=== PATIENT | female | born 1970 | race Caucasian/White ===

== ENCOUNTER 2019-05-30 09:18 | Outpatient (CLI) | payer MEDICARE, MEDICAID, SELFPAY | END 2019-05-30 09:19 | disposition home or self-care (01) | PROVIDERS: PCP Family Medicine; Visit Provider Family Medicine | DX: Z01.10 Encounter for examination of ears and hearing without abnormal findings (principal) | CPT/HCPCS: 92567; 92587 ==

== ENCOUNTER 2020-06-04 07:12 | Outpatient (CLI) | payer MEDICARE, MEDICAID, SELFPAY | END 2020-06-04 07:13 | disposition home or self-care (01) | PROVIDERS: PCP Family Medicine; Visit Provider Family Medicine | DX: H91.90 Unspecified hearing loss, unspecified ear (principal) | CPT/HCPCS: 92567; 92587 ==

== ENCOUNTER 2021-06-27 08:58 | Outpatient (CLI) | payer MEDICARE, MEDICAID, SELFPAY | END 2021-06-27 08:59 | disposition home or self-care (01) | LOC: ANHAUDIO 08:59 | PROVIDERS: PCP Family Medicine; Visit Provider Family Medicine | DX: Z01.10 Encounter for examination of ears and hearing without abnormal findings (principal) | CPT/HCPCS: 92587 ==

== ENCOUNTER 2022-07-22 09:12 | Outpatient (CLI) | payer MEDICARE, MEDICAID, SELFPAY | END 2022-07-22 09:13 | disposition home or self-care (01) | LOC: ANHAUDIO 09:13 | PROVIDERS: PCP Family Medicine; Visit Provider Family Medicine | DX: Z01.10 Encounter for examination of ears and hearing without abnormal findings (principal); H91.90 Unspecified hearing loss, unspecified ear | CPT/HCPCS: 92567 ==

== ENCOUNTER 2023-07-28 07:52 | Outpatient (CLI) | payer MEDICARE, MEDICAID, SELFPAY | END 2023-07-28 07:53 | disposition home or self-care (01) | LOC: ANHAUDIO 07:52 | PROVIDERS: PCP Family Medicine; Visit Provider Family Medicine | DX: Z01.10 Encounter for examination of ears and hearing without abnormal findings (principal) | CPT/HCPCS: 92555; 92567; 92587 ==

== ENCOUNTER 2024-08-04 07:51 | Outpatient (CLI) | payer MEDICARE, MEDICAID, SELFPAY ==
--- OUTSIDE RECORDS SUMMARY | 2024-08-04 07:55 | XMS_ITS | Clinical Summary ---
Author Organization [facility] Address [address] [place] [address] Care Team Providers Care Insurance Collector Name Role Phone Rory Medrano MD Primary Care Provider [phone] Allergies No known active allergies Medications benztropine 0.5 MG Tab Take 1 tablet by mouth nightly at bedtime. Active calcium carbonate-vitami n D 600-400 MG-UNIT Tab Take 1 tablet by mouth 2 (two) times daily. Active potassium chloride CR 10 MEQ tablet Take 10 mEq by mouth daily. Active estrogen, conjugated,-medr oxyPROGESTERone (PREMPRO LOW DOSE) 0.45-1.5 MG tablet Take 1 tablet by mouth daily. Active sertraline 100 MG tablet Take 200 mg by mouth daily. Active triamcinolone 0.1 % cream Apply topically 2 (two) times daily as needed. Active acetaminophen 325 MG tablet Take 650 mg by mouth every 4 (four) hours as needed for Pain. Active topiramate 25 MG tabletIndication s:take 3 tabs at 4pm Take 3 tablets (75 mg total) by mouth daily. Indications: take 3 tabs at 4pm 90 tablet 1 Active OXcarbazepine 600 MG Tab tabletIndication s:take at 7am and 8pm Take 1 tablet (600 mg total) by mouth 2 (two) times daily. Indications: take at 7am and 8pm 60 tablet 1 Active OXcarbazepine 300 MG tabletIndication s:take at 4pm with 150mg tab to = 450mg Take 1 tablet (300 mg total) by mouth daily. Indications: take at 4pm with 150mg tab to = 450mg 60 tablet 11 1 Active OXcarbazepine 150 MG tabletIndication s:at 4 pm with 300mg tab to = 450mg Take 1 tablet (150 mg total) by mouth daily. Indications: at 4 pm with 300mg tab to = 450mg 120 tablet 11 1 Active lamoTRIgine 200 MG tabletIndication s:Nonintractable epilepsy without status epilepticus, unspecified epilepsy type ([facility]) Take 1 tablet (200 mg total) by mouth daily. Take with 50 mg Tab to = 250mg 60 tablet 11 1 Active lamoTRIgine 100 MG tabletIndication s:take with 200 mg tab to =250mg Take 0.5 tablets (50 mg total) by mouth daily. Indications: take with 200 mg tab to =250mg 60 tablet 1 Active clonazePAM 0.5 MG tabletIndication s:Nonintractable epilepsy without status epilepticus, unspecified epilepsy type ([facility]) Take 0.5 tablets (0.25 mg total) by mouth 2 (two) times daily. 90 tablet 5 1 Active Active Problems Problem Noted Date Diagnosed Date Septic shock ([facility]) 07/05/2018 At risk for osteopenia 06/10/2017 Long-term current use of anticonvulsant 06/11/19 18 Epilepsy ([facility]) 06/02/2016 Bipolar disorder ([facility]) 05/28/2016 Mental retardation 05/28/2016 Neurodermatitis 05/28/2016 Resolved Problems Problem Noted Date Diagnosed Date Resolved Date Postoperative examination 10/22/2015 Social History Tobacco Use Types Packs/Day Years Used Date Smoking Tobacco: Never Smokeless Tobacco: Never Tobacco Cessation:Counseling Given: No Comments:patient isnt smoking Alcohol Use Standard Drinks/Week Comments No 0 (1 standard drink = 0.6 oz pur e alcohol) AUDIT-C Answer Date Recorded Frequency of Alcohol Consumption Never 07/05/2018 Average Number of Drinks Not on file 019 Frequency of Binge Drinking Not on file 10/2018 PHQ-2 Answer Date Recorded PHQ-2 Score - If the patient scores above 3, please move on to questions 3-9 0 06/22/2020 Comments No Sex and Gender Information Value Date Recorded Sex Assigned at Not on file Legal Sex Female 4:53 PM CDT Gender Identity Not on file Sexual Orientation Not on file Last Filed Vital Signs Vital Sign Reading Time Taken Comments Blood Pressure 108/64 06/22/2020 8:31 AM CDT Pulse 72 06/22/2020 8:31 AM CDT Temperature 36.3 C (97.4 F) 06/22/2020 8:31 AM CDT Respiratory Rate 18 04/14/2019 3:51 PM DRIVER'S EDUCATION INSTRUCTOR Oxygen Saturation 98% 06/22/2020 8:31 AM CDT Inhaled Oxygen Concentration - - Weight 52.6 kg (116 lb) 06/22/2020 8:31 AM CDT Height 157.5 cm (5' 2 ) 06/22/2020 8:31 AM CDT Body Mass Index 21.22 06/22/2020 8:31 AM CDT Plan of Treatment Health Maintenance Due Date Last Done Comments Cervical Cancer Screening Pa p Smear (Age 30 to 64) Every 3 Years 1969 Colorectal Cancer Screening Colonoscopy (10 Years) 1969 Annual Physical 1972 Hepatitis C 06/15/1987 DTaP, Tdap and Td Vaccines ( 1 - Tdap) 1988 Hepatitis B Vaccines (1 of 3 - 19+ 3-dose series) 1988 Cervical Cancer Screening Pa p with HPV Testing (Age 30 to 64) Every 5 Years 06/15/1999 Cervical Cancer Screening with HPV 06/15/1999 Mammogram Screening 2009 Pneumococcal Vaccine: 50+ Ye ars (1 of 1 - PCV) 06/15/2019 Zoster Vaccines (1 of 2) 06/15/2019 COVID-19 Vaccine (2023-2 5 season) 2023 Meningococcal B Vaccine Aged Out No l onger eligible based on patient's age to complete this topic Meningococcal Vaccine Aged Out No ceci quan eligible based on patient's age to complete this topic RSV Immunizations Under 20 Months Aged Out No longer eligible based on patient's age to complete this topic Insurance MEDICARE MEDICAID Advance Directives * Full Code (Latest Code Status on File) Date Activated Date Inactivated Comments 07/06/2018 2:13 PM 07/08/2018 1:36 PM Care Teams Insurance Collector Relationship Specialty Start Date End Date Rory Medrano MD PCP - General FAMILY PRACTICE 07/05/18
--- OUTSIDE RECORDS SUMMARY | 2024-08-04 07:55 | XMS_ITS | Data Portability ---
Author Organization [facility], [address] [facility] ([place]) Address [address] [place] [address] [address] [place] [address] Care Team Providers Care Outdoor Illuminating Engineer Name Role Phone YESSICA BOSWELL Primary Care Provider Assessment Encounter Date Assessment Date Assessment LastModified by Organization Details LastModified Time 08/17/2023 08/17/2023 ASSESSMENT AND PLAN: Rupinder Castro is a 53-year-old female who presents today to [facility] seizure disorder. At this point she is stable on lamotrigine extended release 250 mg daily and 450 mg in the afternoon, topiramate 75 mg nightly and Trileptal 600 mg in the morning, 450 mg in the afternoon and 600 mg nightly. She was historically also on Clonazepam 0.5 mg b.i.d. Per review of facility records they are maintaining this dosing. We will maintain dosing as well since she has had no seizure breakthrough. I would like to see her back in 1 year. I personally spent a total of 15 minutes on the patient on this date of service including both ldrs-cy-lzbc and zav-rqoa-tc-fac e time excluding any separately reportable services. [email or web address] vanegas Not available 08/17/2023 13:01:02 07/11/2024 07/11/2024 ASSESSMENT AND PLAN: Rupinder Castro is a 54-year-old female with past medical history significant for mental retardation with long-standing history of seizure disorder. She maintains stable on the current doses of Lamictal, Trileptal, topiramate and Clonazepam. For this reason, we will maintain the current regimen. I will obtain recent lab work from [facility]. If there is any need to repeat CBC, CMP or sodium level, we will consider doing so if necessary. I will see her back in 1 year secondary to stability. If she needs anything in the interim, she understands to call the office. I personally spent a total of 5 minutes on the patient on this date of service including both znrh-ol-qjjo and dhl-eeoc-hl-fac e time excluding any separately reportable services. saw [email or web address] Not available 07/11/2024 12:08:17 Plan of Treatment Reminders Order Date Submit Date Provider Last Modified By Organization Details Last Modified Time Details Appointments Establish ed Patient 15.EST 2025 09:30A M Dr. Shraddha Paiz Not available Not available Not available Lab None recorded. Referral None recorded. Procedures None recorded. Surgeries None recorded. Imaging None recorded. Medication Orders topiramat e 25 mg tablet 2024 025 [facility], [address] [place], [address], 07/11/2024 11:03:43 Trileptal 150 mg tablet 2024 025 [facility], [facility] [address] [place], [address], 07/11/2024 11:03:45 Trileptal 600 mg tablet 2024 025 [facility], [facility] [address] [place], [address], 07/11/2024 11:03:53 Lamictal XR 200 mg tablet,ex tended release 2024 025 [facility], [address] [place], [address], 07/13/2024 16:19:55 Lamictal XR 100 mg tablet,ex tended release 2024 025 [facility], [address] [place], [address], 07/13/2024 16:18:55 Lamictal XR 200 mg tablet,ex tended release [address], [address], [place], [address], 07/13/2024 16:18:54 Lamictal XR 100 mg tablet,ex tended release [address], [address], [place], [address], 07/13/2024 16:18:39 Trileptal 600 mg tablet 2023 024 [facility] [address] [facility], [address], [place], [address], 08/17/2023 11:03:38 Trileptal 150 mg tablet 2023 024 [facility] [employer] [facility], [address] [place], [address], 08/17/2023 11:03:39 topiramat e 25 mg tablet 2023 024 [facility] [employer] [facility], [address], [place], [address], 08/17/2023 11:04:32 clonazepa m 0.5 mg tablet 2023 024 [facility] [employer] [facility], [address], [place], [address], 08/17/2023 11:06:32 Patient TargetsNo targets recorded. Patient InstructionsNo instructions recorded. Reason for Referral None Reported. Results Created Date Observation Date Name Description Value Unit Range Abnormal Flag Note LastModifiedBy Organization Detail LastModifiedTime Result Notes None recorded. Problems Name Problem SNOMED Code Status Onset Date Resolution Date Notes Provider Name and Address Organization Details Recorded Time Seizure disorder 104334842 Active 024 Shraddha Paiz MD [address] [facility], [place], [address] , [employer] 5 10:59:17 Problem Notes None recorded. Medical Equipment None Reported. Medications Name Sig Start Date Stop Date Status Note LastModified by Organization Details LastModified Time Prescript ion - New active Microbiology Supervisor: RUBY CUELLO (Neurolo gy) , sPrescri ption Form Not Available Not Available Not Available Colace 100 mg capsule Take 1 capsule every day by oral route as directed . active Not Available Not Available No t Available benztropi ne 0.5 mg tablet Take 1 tablet every day by oral route. active Not Available Not Available No t Available lamotrigi ne 200 mg tablet Take 1 tablet every day by oral route in the morning for 30 days, for Seizure disorder . 2024 active Not Available Not Available Not Avai lable clonazepa m 0.5 mg tablet Take 1/2 tab at 7 am and 8 pm 2023 active Not Available Not Available Not Avai lable sertralin e 100 mg tablet Take 2 tablets every day by oral route as directed . active Not Available Not Available No t Available topiramat e 25 mg tablet Take 3 tablets nightly 2024 active Not Available Not Available Not Avai lable potassium chloride ER 10 mEq tablet,ex tended release Take 1 tablet every day by oral route as directed . active Not Available Not Available No t Available triamcino lone acetonide 0.1 % topical cream APPLY A THIN LAYER TO THE AFFECTED AREA(S) BY TOPICAL ROUTE 2 TIMES PER DAY active Not Available Not Available No t Available lamotrigi ne 25 mg tablet Take 2 tablets every day by oral route in the morning for 30 days, for Seizure disorder . 2024 active Not Available Not Available Not Avai lable Trileptal 600 mg tablet Take 1 tab BID in addition to 450 mg in afternoo n 2024 active Not Available Not Available Not Avai lable Trileptal 150 mg tablet Take 3 tablets in the afternoo n in addition to the 600 mg dosing 2024 active Not Available Not Available Not Avai lable Tylenol 325 mg tablet Take 2 tablets every 6 hours by oral route as needed. active Not Available Not Available No t Available Lamictal XR 200 mg tablet,ex tended release Take 1 tab q am and 2 tabs nightly with 1/2 of the 100 mg ER tab 07/13 completed Not Available Not Available Not Available Lamictal XR 100 mg tablet,ex tended release Take 1 tab q am and 1/2 tab nightly with the 200 mg tab dose 07/13 completed Not Available Not Available Not Available Prolia 60 mg/mL subcutane ous syringe INJECT 1 MILLILIT ER (60 MG) BY SUBCUTAN EOUS ROUTE EVERY 6 MONTHS IN THE UPPER ARM, UPPER THIGH OR ABDOMEN active Not Available Not Available No t Available Vitals Date Recorded Body weight Heart rate Respiratory rate Oxygen saturation Oxygen saturation in Arterial blood by Pulse oximetry Systolic blood pressure Diastolic blood pressure Provider Name and Address Organization Details Last Updated DateTime 4 91683.4 9 g 82 /min 18 /min 95 % 95 % 94 mm[Hg] 50 mm[Hg] Yuki [facility] 4 10:38:15 Date Recorded Body height Body mass index (BMI) Body weight Heart rate Oxygen saturation Oxygen saturation in Arterial blood by Pulse oximetry Systolic blood pressure Diastolic blood pressure Provider Name and Address Organization Details Last Updated DateTime 5 157.48 cm 24.8 kg/m2 25879.4 1 g 77 /min 96 % 96 % 98 mm[Hg] 67 mm[Hg] Elizabeth Vincent [facility] 5 10:36:37 Social History None recorded. Functional Status None recorded. Mental Status None recorded. Family History Nothing Reported. Medical History No medical history recorded. Gynecological HistoryNo gynecological history recorded. Obstetrics History GPAL:G 0 P 0 0 0 0 Past Encounters Encounter ID Performer Location Encounter Start Date Encounter Closed Date Diagnosis/Indication Diagnosis SNOMED-CT Code Diagnosis ICD10 Code Diagnosis Note [id number] Shraddha Paiz MD [facility] ([place]) [address] [place] [address] 08/17/2023 10:34:23 08/20/2023 10:35:09 Seizure disorder 945107406 G40.909 Long-term drug therapy 208834389 Z79.899 [id number] Shraddha Paiz MD [place] [facility] ([place]) [address] [place] [address] 07/11/2024 10:28:55 07/11/2024 10:49:25 Seizure disorder 926796622 G40.909 Health Concerns Section Related Observation LastModified by Organization Detai ls LastModified Time None Recorded Concern Status LastModified by Organization Details LastModified Time None Recorded Advance Directives Directive None Recorded Payers Insurance Date Sequence Insurance Name Policy Number Policy Buck Covered Member ID Buck Member ID Guarantor Name 07/06/2024 1 [place] Rupinder Castro [id number] Rupinder Castro 07/06/2024 2 [place]: [facility] Rupinder Castro [id number] Rupinder Castro Notes Date Note Type Note Provider Name and Address Organization Details Recorded Time 08/17/2023 text/html Rupinder Castro is a 53-year-old female with history of mental retardation in addition to long-standing history of seizure disorder. In the interim since I last saw her, she is doing quite well. She maintains at this point on oxcarbazepine 600 mg in the morning, 450 mg in the afternoon and 600 mg nightly. She is tolerating the medication well without adverse effects at this point. In addition to this, historically she has been on topiramate 75 mg at 4 p.m. and lamotrigine extended release 250 mg daily per review of records. She was last seen by Dr. Whitlock in 2020 and has not been seen since that time. She has not had breakthrough events since she was last seen. She is tolerating medications well and had recent CBC, CMP which were within normal range with a normal sodium. Shraddha Paiz MD [address] , [place], [address], [employer] 08/19/2023 14:36:37 07/11/2024 text/html Rupinder Castro is a 54-year-old female who returns for follow-up for seizure disorder. We last saw her in July 2023. She has past medical history significant for mental retardation with long-standing seizures. She continues to do very well on her current regimen without reported breakthrough events since she was last seen. She maintains on Lamictal extended release 300 mg in the a.m. and 450 mg in the evening. She maintains Trileptal 600 mg in the morning, 450 mg in the afternoon and 600 mg nightly. She maintains topiramate 75 mg in the evening. She takes Clonazepam half of a 0.5 mg tablet twice daily which equates to 0.25 mg twice daily. She is reported to have had recent lab work completed at [facility]. We will obtain the records. Historical CBC, CMP and sodium levels were within normal range. Her caregiver reports no significant concerns at this time. Shraddha Paiz MD [address] [facility], [place], [address], [employer] 07/13/2024 13:10:24 OBGyn Episode No OBEpisode recorded.
--- OUTSIDE RECORDS SUMMARY | 2024-08-04 07:56 | XMS_ITS ---
Author Organization Unknown Address [address] [place] [phone] Phone Care Team Providers Care Tram Inspector Name Role Phone DAPHNIE HERNANDEZ Attending Unavailable ANDREIA Curry Primary Unavailable Immunization Immunization Date Status Additional Notes Code Code System pneumococcal polysaccharide PPV23 08/20/2011 Completed 33 CVX Tdap 05/27/2006 Completed 115 CVX Tdap 06/24/2016 Completed 115 CVX Influenza, split virus, trivalent, preservative 01/06/2012 Completed 141 CVX Influenza, split virus, trivalent, preservative 12/29/2013 Completed 141 CVX Influenza, split virus, trivalent, preservative 12/09/2023 Completed 141 CVX Influenza, split virus, quadrivalent, preservative 12/10/2016 Completed 158 C VX Influenza, split virus, quadrivalent, preservative 12/16/2017 Completed 158 C VX Influenza, split virus, quadrivalent, preservative 12/15/2018 Completed 158 C VX Influenza, split virus, quadrivalent, preservative 12/07/2019 Completed 158 C VX Influenza, split virus, quadrivalent, preservative 12/12/2020 Completed 158 C VX Influenza, split virus, quadrivalent, preservative 12/04/2021 Completed 158 C VX Influenza, split virus, quadrivalent, preservative 12/03/2022 Completed 158 C VX zoster recombinant 06/27/2024 Completed 187 CVX COVID-19, mRNA, LNP-S, PF, 3 0 mcg/0.3 mL dose 04/19/2020 Completed 208 CVX COVID-19, mRNA, LNP-S, PF, 3 0 mcg/0.3 mL dose 05/10/2020 Completed 208 CVX COVID-19, mRNA, LNP-S, PF, 3 0 mcg/0.3 mL dose 03/01/2021 Completed 208 CVX COVID-19, mRNA, LNP-S, bivalent, PF, 30 mcg/0.3 mL dose 05/21/2022 Completed 300 CVX Results ESOPHAGUS - Completed: 02/26 10:03 LOINC: EXAM DESCRIPTION: ESOPHAGUS REASON FOR STUDY: CHECKING FOR ASPIRATION Duration: MONTH RADIATION DOSE: Dose: The utilized fluoroscopic equipment does not provide radiation exposure indices. The exposure time is 2.4 minutes and the number of fluorographic images are 11 TECHNIQUE: Under fluoroscopic guidance, patient ingested thin barium. COMPARISON: Esophagram 05/14/2017 FINDINGS: Evaluation is compromised by excessive patient motion. ESOPHAGEAL MOTILITY: Normal peristalsis. ESOPHAGEAL MUCOSA: Grossly normal mucosa without masses or ulceration. GASTRO-ESOPHAGEAL JUNCTION: There is a small amount of gastroesophageal reflux. No hiatal hernia is seen OTHER: No other significant finding. IMPRESSION: 1. Small amount of gastroesophageal reflux. 2. If there is continued concern for aspiration, video oropharyngeal swallow study with speech therapy could be considered. THIS IS AN ELECTRONICALLY VERIFIED FINAL REPORT 02/26/2023 11:26 AM - Electronically signed by Froilan Reeves M.D., JR: Report ID: [id number] Reading Location: [place] [address] Social History Type Status Start Date End Date Code Code Syst em Smoking History Never smoker (Never Smoked) 899058082 [facility] Smoking History Unknown if ever smoked [address] [facility] Sex Female Medications Medication Start Date End Date Route Frequency Dose Code Code System Medication Instructions Home Meds Acetaminophen 325MG Oral Tablet 11/06/2017 Unknown ORAL NEEDED 325 MILLIGRAMS 981679 RxNorm TAKE 325 MILLIGRAMS ORAL NEEDED Benztropine Mesylate 0.5MG Oral Tablet 11/06/2017 Unknown ORAL TWICE A DAY 0.5 MILLIGRAMS 512770 RxNorm TAKE 0.5 MILLIGRAMS ORAL TWICE A DAY Betamethasone Valerate 0.1% Topical application Cream 11/06/2017 Unknown TOPICA L APPLIC ATION ONCE A DAY 1 unit(s) 557783 RxNorm 1 EACH TOPICAL APPLICATION ONCE A DAY Caltrate 600 + D 600MG-200IU Oral Tablet 11/06/2017 Unknown ORAL ONCE A DAY 1 unit(s) 1955919 RxNorm TAKE 1 EACH ORAL ONCE A DAY Clotrimazole 1% Topical application Cream 11/06/2017 Unknown TOPICA L APPLIC ATION TWICE A DAY 1 unit(s) 045975 RxNorm 1 EACH TOPICAL APPLICATION TWICE A DAY Colace 100MG Oral Capsule, Liquid Filled 11/06/2017 Unknown ORAL TWICE A DAY 100 MILLIGRAMS 3930153 RxNorm TAKE 100 MILLIGRAMS ORAL TWICE A DAY OXcarbazepine 150MG Oral Tablet 11/06/2017 Unknown ORAL ONCE A DAY 150 MILLIGRAMS 406984 RxNorm TAKE 150 MILLIGRAMS ORAL ONCE A DAY OXcarbazepine 300MG Oral Tablet 11/06/2017 Unknown ORAL ONCE A DAY 300 MILLIGRAMS 412451 RxNorm TAKE 300 MILLIGRAMS ORAL ONCE A DAY OXcarbazepine 600MG Oral Tablet 11/06/2017 Unknown ORAL EVERY 12 HOURS 600 MILLIGRAMS 433725 RxNorm TAKE 600 MILLIGRAMS ORAL EVERY 12 HOURS Potassium Chloride 10MEQ Oral Tablet, Extended Release 11/06/2017 Unknown ORAL ONCE A DAY 10 MEQ 306229 RxNorm TAKE 10 MEQ ORAL ONCE A DAY Prempro 0.45MG-1.5MG Oral Tablet 11/06/2017 Unknown ORAL ONCE A DAY 1 unit(s) 5239879 RxNorm TAKE 1 EACH ORAL ONCE A DAY Sertraline 100MG Oral Tablet 11/06/2017 Unknown ORAL EVERY 24 HOURS 100 MILLIGRAMS 098672 RxNorm TAKE 100 MILLIGRAMS ORAL EVERY 24 HOURS Terazosin HCl 2MG Oral Capsule 11/06/2017 Unknown ORAL AT BEDTIME 2 MILLIGRAMS 276994 RxNorm TAKE 2 MILLIGRAMS ORAL AT BEDTIME Topiramate 25MG Oral Tablet 11/06/2017 Unknown ORAL EVERY 24 HOURS 25 MILLIGRAMS [id number] RxNorm TAKE 25 MILLIGRAMS ORAL EVERY 24 HOURS clonazePAM 0.5MG Oral Tablet 11/06/2017 Unknown ORAL TWICE A DAY 0.5 MILLIGRAMS 19740506 RxNorm TAKE 0.5 MILLIGRAMS ORAL TWICE A DAY lamoTRIgine 200MG Oral Tablet 11/06/2017 Unknown ORAL EVERY 24 HOURS 200 MILLIGRAMS 19830508 RxNorm TAKE 200 MILLIGRAMS ORAL EVERY 24 HOURS risperiDONE 1MG Oral Tablet 11/06/2017 Unknown ORAL TWICE A DAY 1 MILLIGRAMS 803770 RxNorm TAKE 1 MILLIGRAMS ORAL TWICE A DAY Hospital Discharge Instructions Should you have any questions prior to discharge, please contact a member of your healthcare team. If you have left the hospital and have any questions, please contact your primary care physician. Reason For Referral No Data Found Allergies and Adverse Reactions Allergy Substance Reaction Severity Start Date Concern Status Co de Code System No Known Drug Allergies Active 866463941 SNOMED-CT Plan of Treatment Bone Density Dexa 11/10/2019 Digital Preeti Screen Bilateral (72062) Bone Density Dexa 11/10/2019 Digital Preeti Screen Bilateral (26147) Bone Density Dexa 06/13/2022 Esophagus 02/26/2023 Digital Preeti Screen Bilateral (73117) Digital Preeti Screen Bilateral (68823) Bone Density Dexa 07/22/2024 Digital Preeti Screen Bilateral (92950) Encounters Encounter Diagnosis Start Date Code Code Sys tem Gastro-esophageal reflux disease without esophagitis 1 04/28/2022 SNOMED-CT Personal Care Team Section Performer Name Performer Role Active Date Inactive YESSICA Lipscomb [facility] Narrative Notes
--- OUTSIDE RECORDS SUMMARY | 2024-08-04 07:56 | XMS_ITS ---
Author Organization Unknown Address [address] [place] [phone] Phone Care Team Providers Care Inside Sales Professional Name Role Phone ANDREIA YESSICA Curry Attending Unavailable Immunization Immunization Date Status Additional Notes [...] mL dose 05/21/2022 Completed 300 CVX Results BONE DENSITY STUDY DEXA HIP OR SPINE - Completed: 07/22/2024 13:17 LOINC: \TM00\12PI\DRAo\BM09\ \MRHo\ [address] [address] ---------NAME--------- NUMBER SEX AGE ADMIT DISC. XRAY# F/C TYPE LORNA PEREZ CALEB [id number] F 54 07/22/24 07/22/24 [id number] MB O/P DATE OF : 1970 M/R# [id number] PH#: [phone] \MRx\ LOCATION: TRANSCRIBED: 07/22/24 12:56 BONE DENSITY STUDY DEXA HIP [id number] COMPLETED: 21231 {REASON-BONE DENSITY: OSTEOPOROSIS PHYSICIAN: ANDREIA BR R A D I O L O G Y R E P O R T INDICATION: OSTEOPOROSIS ; postmenopausal. DEXA SCAN: BONE DENSITY REPORT: AP SPINE (L1-L4) : T Score: -2.4 LEFT FEMORAL NECK : T Score: -1.6 LEFT HIP TOTAL : T Score: -2.3 10 YEAR FRACTURE RISK* Not provided. IMPRESSION: 1. Osteoporosis of the lumbar spine 2. Osteopenia of the left femoral neck. *FRAX version 3.08. Fracture probability calculated for an untreated patient. Fracture probability may be lower if the patient has received treatment. T-score: comparison by standard deviation (SD) to a young adult population, matched for sex and ethnicity (used for postmenopausal women and men >50 years) and classified by WHO criteria. -1.0: normal <-1.0 to >-2.5: osteopenia -2.5: osteoporosis -2.5 plus fragility fracture: severe osteoporosis Z-score: compared by SD to an age, sex, and ethnicity population (used for premenopausal women, men <50 years, and children instead of T-score WHO criteria 4) <-2.0: below expected range/low bone density for age, and a cause should be sought TRIC HOIST OPERATOR \ITLo\ \UNDo\ \UNDx\ \ITLx\ Reviewed and Electronically Signed by: Michelle Rodriguez MD Signed Date: 07/22/24 12:56 Social History Type Status Start Date End Date Code Code Syst em Smoking History Never smoker (Never Smoked) [id number] SNOMED CT Smoking History Unknown if ever smoked [id number] Sex Female Medications Medication Start Date End Date Route Frequency Dose Code Code System Medication Instructions Home Meds Acetaminophen 325MG Oral Tablet 11/06/2017 Unknown ORAL NEEDED 325 MILLIGRAMS 148495 RxNorm TAKE 325 MILLIGRAMS ORAL NEEDED Benztropine Mesylate 0.5MG Oral Tablet 11/06/2017 Unknown ORAL TWICE A DAY 0.5 MILLIGRAMS 869627 RxNorm TAKE 0.5 MILLIGRAMS ORAL TWICE A DAY Betamethasone Valerate 0.1% Topical application Cream 11/06/2017 Unknown TOPICA L APPLIC ATION ONCE A DAY 1 unit(s) 179648 RxNorm 1 EACH TOPICAL APPLICATION ONCE A DAY Caltrate 600 + D 600MG-200IU Oral Tablet 11/06/2017 Unknown ORAL ONCE A DAY 1 unit(s) 8667477 RxNorm TAKE 1 EACH ORAL ONCE A DAY Clotrimazole 1% Topical application Cream 11/06/2017 Unknown TOPICA L APPLIC ATION TWICE A DAY 1 unit(s) 317951 RxNorm 1 EACH TOPICAL APPLICATION TWICE A DAY Colace 100MG Oral Capsule, Liquid Filled 11/06/2017 Unknown ORAL TWICE A DAY 100 MILLIGRAMS 0236967 RxNorm TAKE 100 MILLIGRAMS ORAL TWICE A DAY OXcarbazepine 150MG Oral Tablet 11/06/2017 Unknown ORAL ONCE A DAY 150 MILLIGRAMS 511511 RxNorm TAKE 150 MILLIGRAMS ORAL ONCE A DAY OXcarbazepine 300MG Oral Tablet 11/06/2017 Unknown ORAL ONCE A DAY 300 MILLIGRAMS 028162 RxNorm TAKE 300 MILLIGRAMS ORAL ONCE A DAY OXcarbazepine 600MG Oral Tablet 11/06/2017 Unknown ORAL EVERY 12 HOURS 600 MILLIGRAMS 748864 RxNorm TAKE 600 MILLIGRAMS ORAL EVERY 12 HOURS Potassium Chloride 10MEQ Oral Tablet, Extended Release 11/06/2017 Unknown ORAL ONCE A DAY 10 MEQ 779284 RxNorm TAKE 10 MEQ ORAL ONCE A DAY Prempro 0.45MG-1.5MG Oral Tablet 11/06/2017 Unknown ORAL ONCE A DAY 1 unit(s) 8145927 RxNorm TAKE 1 EACH ORAL ONCE A DAY Sertraline 100MG Oral Tablet 11/06/2017 Unknown ORAL EVERY 24 HOURS 100 MILLIGRAMS 457086 RxNorm TAKE 100 MILLIGRAMS ORAL EVERY 24 HOURS Terazosin HCl 2MG Oral Capsule 11/06/2017 Unknown ORAL AT BEDTIME 2 MILLIGRAMS 081970 RxNorm TAKE 2 MILLIGRAMS ORAL AT BEDTIME Topiramate 25MG Oral Tablet 11/06/2017 Unknown ORAL EVERY 24 HOURS 25 MILLIGRAMS 034909 RxNorm TAKE 25 MILLIGRAMS ORAL EVERY 24 HOURS clonazePAM 0.5MG Oral Tablet 11/06/2017 Unknown ORAL TWICE A DAY 0.5 MILLIGRAMS 574070 RxNorm TAKE 0.5 MILLIGRAMS ORAL TWICE A DAY lamoTRIgine 200MG Oral Tablet 11/06/2017 Unknown ORAL EVERY 24 HOURS 200 MILLIGRAMS 884567 RxNorm TAKE 200 MILLIGRAMS ORAL EVERY 24 HOURS risperiDONE 1MG Oral Tablet 11/06/2017 Unknown ORAL TWICE A DAY 1 MILLIGRAMS 363539 RxNorm TAKE 1 MILLIGRAMS ORAL TWICE A [...] Code System No Known Drug Allergies Active 789177669 SNOMED-CT Plan of Treatment Bone Density Dexa 11/10/2019 Digital Preeti Screen Bilateral (84473) Bone Density Dexa 11/10/2019 Digital Preeti Screen Bilateral (06280) Bone Density Dexa 06/13/2022 Esophagus 02/26/2023 Digital Preeti Screen Bilateral (54731) Digital Preeti Screen Bilateral (53961) Bone Density Dexa 07/22/2024 Digital Preeti Screen Bilateral (83064) Encounters Encounter Diagnosis Start Date Code Code Sys tem Age-related osteoporosis wit hout current pathological fracture 07/22/2024 SNOMED-CT Personal Care Team Section Performer Name Performer Role Active Date Inactive YESSICA Lipscomb Imaging Narrative Notes [facility] 07/22/2024 12:[address] [address] ---------NAME--------- NUMBER SEX AGE ADMIT DISC. XRAY# F/C TYPE LORNA ELLIS [id number] F 54 07/22/24 07/22/24 46229 O/P DATE OF : 1970 M/R# [id number] #: [phone] LOCATION: TRANSCRIBED: 07/22/24 12:56 BONE DENSITY STUDY DEXA HIP [id number] COMPLETED: 37067 {REASON-BONE DENSITY: OSTEOPOROSIS PHYSICIAN: ANDREIA BR RADIOLOGY REPORT INDICATION: OSTEOPOROSIS ; postmenopausal. DEXA SCAN: BONE DENSITY REPORT: AP SPINE (L1-L4) : T Score: -2.4 LEFT FEMORAL NECK : T Score: -1.6 LEFT HIP TOTAL : T Score: -2.3 10 YEAR FRACTURE RISK* Not provided. IMPRESSION: 1. Osteoporosis of the lumbar spine 2. Osteopenia of the left femoral neck. *FRAX version 3.08. Fracture probability calculated for an untreated patient. Fracture probability may be lower if the patient has received treatment. T-score: comparison by standard deviation (SD) to a young adult population, matched for sex and ethnicity (used for postmenopausal women and men >50 years) and classified by WHO criteria. -1.0: normal <-1.0 to >-2.5: osteopenia -2.5: osteoporosis -2.5 plus fragility fracture: severe osteoporosis Z-score: compared by SD to an age, sex, and ethnicity population (used for premenopausal women, men <50 years, and children instead of T-score WHO criteria 4) <-2.0: below expected range/low bone density for age, and a cause should be sought TRIC HOIST OPERATOR Reviewed and Electronically Signed by: Michelle Rodriguez MD Signed Date: 07/22/24 12:56
--- OUTSIDE RECORDS SUMMARY | 2024-08-04 07:56 | XMS_ITS | Encounter Summary ---
Author Organization [facility] Address [facility] [place] [address] Care Team Providers Care Heavy Machinery Assembler Name Role Phone Rory Medrano MD Primary Care Provider [phone] Encounter Details Date Type Department Care Team (Late st Contact Info) Description 09/04/2018 Abstract SFL CONVERSION [address] [place] [address] , Generic Conversion, Social History Tobacco Use Types Packs/Day Years Used Date Smoking Tobacco: Never Assessed Alcohol Use Standard Drinks/Week Comments No 0 (1 standard drink = 0.6 oz pur e alcohol) AUDIT-C Answer Date Recorded Frequency of Alcohol Consumption Never 07/05/2018 Average Number of Drinks Not on file 019 Frequency of Binge Drinking Not on file 10/2018 Comments Unknown Sex and Gender Information Value Date Recorded Sex Assigned at Not on file Legal Sex Female 4:53 PM CDT Gender Identity Not on file Sexual Orientation Not on file documented as of this encounter Functional Status * RETIRED Are you deaf or do you have serious difficulty hearing Answer Date of Assessment Author Status No 07/08/2018 10:43 AM CDT Acti ve * RETIRED Are you blind or do you have serious difficulty seeing, even when wearing glasses? Answer Date of Assessment Author Status No 07/08/2018 10:43 AM CDT Acti ve * Do you have serious difficulty walking or climbing stairs? Answer Date of Assessment Author Status Yes 07/08/2018 10:43 AM CDT Odessa Koroma, RN Active * Do you have difficulty dressing or bathing? Answer Date of Assessment Author Status Yes 07/08/2018 10:43 AM Odessa Neal RN Active * Because of a physical, mental, or emotional condition, do you have difficulty doing errands alone such as visiting a doctor's office or shopping? Answer Date of Assessment Author Status Yes 07/08/2018 10:43 AM Odessa Neal RN Active documented as of this encounter Mental Status * Because of a physical, mental, or emotional condition, do you have serious difficulty concentrating, remembering, or making decisions? Answer Entry Date Author Status Yes 07/08/2018 10:43 AM Odessa Neal RN Active documented in this encounter Plan of Treatment Not on file documented as of this encounter Visit Diagnoses Not on filedocumented in this encounter Care Teams Heavy Machinery Assembler Relationship Specialty Start Date End Date Rory Medrano MD PCP - General FAMILY PRACTICE 07/05/18 documented as of this encounter
--- OUTSIDE RECORDS SUMMARY | 2024-08-04 07:56 | XMS_ITS ---
Author Organization Unknown Address [address] [place] [phone] Phone Care Team Providers Care Windows Application Developer Name Role Phone DAPHNIE HERNANDEZ Attending Unavailable [...] mL dose 05/21/2022 Completed 300 CVX Results DIG PREETI SCREENING BILATERAL - Completed: 08/27/2023 10:03 LOINC: See Scanned Image Attachment for Report Dictated By: Trans Initials: BG Trans Date: 08/28/23 09:00 <<REPDIST>> Social History Type Status Start Date End Date Code Code Syst em Smoking History Never smoker (Never Smoked) [id number] SNOMED CT Smoking History Unknown if ever smoked [address] Sex Female Medications Medication Start Date End Date Route Frequency Dose Code Code System Medication Instructions Home Meds Acetaminophen 325MG Oral Tablet 11/06/2017 Unknown ORAL NEEDED 325 MILLIGRAMS 240216 RxNorm TAKE 325 MILLIGRAMS ORAL NEEDED Benztropine Mesylate 0.5MG Oral Tablet 11/06/2017 Unknown ORAL TWICE A DAY 0.5 MILLIGRAMS 543043 RxNorm TAKE 0.5 MILLIGRAMS ORAL TWICE A DAY Betamethasone Valerate 0.1% Topical application Cream 11/06/2017 Unknown TOPICA L APPLIC ATION ONCE A DAY 1 unit(s) 759426 RxNorm 1 EACH TOPICAL APPLICATION ONCE A DAY Caltrate 600 + D 600MG-200IU Oral Tablet 11/06/2017 Unknown ORAL ONCE A DAY 1 unit(s) 0159218 RxNorm TAKE 1 EACH ORAL ONCE A DAY Clotrimazole 1% Topical application Cream 11/06/2017 Unknown TOPICA L APPLIC ATION TWICE A DAY 1 unit(s) 493250 RxNorm 1 EACH TOPICAL APPLICATION TWICE A DAY Colace 100MG Oral Capsule, Liquid Filled 11/06/2017 Unknown ORAL TWICE A DAY 100 MILLIGRAMS 0316286 RxNorm TAKE 100 MILLIGRAMS ORAL TWICE A DAY OXcarbazepine 150MG Oral Tablet 11/06/2017 Unknown ORAL ONCE A DAY 150 MILLIGRAMS 714417 RxNorm TAKE 150 MILLIGRAMS ORAL ONCE A DAY OXcarbazepine 300MG Oral Tablet 11/06/2017 Unknown ORAL ONCE A DAY 300 MILLIGRAMS 320134 RxNorm TAKE 300 MILLIGRAMS ORAL ONCE A DAY OXcarbazepine 600MG Oral Tablet 11/06/2017 Unknown ORAL EVERY 12 HOURS 600 MILLIGRAMS 829839 RxNorm TAKE 600 MILLIGRAMS ORAL EVERY 12 HOURS Potassium Chloride 10MEQ Oral Tablet, Extended Release 11/06/2017 Unknown ORAL ONCE A DAY 10 MEQ 798964 RxNorm TAKE 10 MEQ ORAL ONCE A DAY Prempro 0.45MG-1.5MG Oral Tablet 11/06/2017 Unknown ORAL ONCE A DAY 1 unit(s) 3387839 RxNorm TAKE 1 EACH ORAL ONCE A DAY Sertraline 100MG Oral Tablet 11/06/2017 Unknown ORAL EVERY 24 HOURS 100 MILLIGRAMS 314864 RxNorm TAKE 100 MILLIGRAMS ORAL EVERY 24 HOURS Terazosin HCl 2MG Oral Capsule 11/06/2017 Unknown ORAL AT BEDTIME 2 MILLIGRAMS 526211 RxNorm TAKE 2 MILLIGRAMS ORAL AT BEDTIME Topiramate 25MG Oral Tablet 11/06/2017 Unknown ORAL EVERY 24 HOURS 25 MILLIGRAMS 459940 RxNorm TAKE 25 MILLIGRAMS ORAL EVERY 24 HOURS clonazePAM 0.5MG Oral Tablet 11/06/2017 Unknown ORAL TWICE A DAY 0.5 MILLIGRAMS 638069 RxNorm TAKE 0.5 MILLIGRAMS ORAL TWICE A DAY lamoTRIgine 200MG Oral Tablet 11/06/2017 Unknown ORAL EVERY 24 HOURS 200 MILLIGRAMS 884849 RxNorm TAKE 200 MILLIGRAMS ORAL EVERY 24 HOURS risperiDONE 1MG Oral Tablet 11/06/2017 Unknown ORAL TWICE A DAY 1 MILLIGRAMS 193449 RxNorm TAKE 1 MILLIGRAMS ORAL TWICE A [...] Code System No Known Drug Allergies Active 999765232 SNOMED-CT Plan of Treatment Bone Density Dexa 11/10/2019 Digital Preeti Screen Bilateral (36223) Bone Density Dexa 11/10/2019 Digital Preeti Screen Bilateral (43577) Bone Density Dexa 06/13/2022 Esophagus 02/26/2023 Digital Preeti Screen Bilateral (09965) Digital Preeti Screen Bilateral (43118) Bone Density Dexa 07/22/2024 Digital Preeti Screen Bilateral (37651) Encounters Encounter Diagnosis Start Date Code Code Sys tem Screening mammography 08/27/2023 [id number] SNOMED -CT Personal Care Team Section Performer Name Performer Role Active Date Inactive YESSICA Lipscomb Imaging Narrative Notes [facility] 08/28/2023 09:00 [place] [address] RADIOLOGY REPORT Patient Number: [id number] Patient Name: LORNA ELLIS Type: O/P MR Number: [id number] : 1970 Age: 53 Sex: F Room #: Admit Date: 08/27/23 Discharge Date 08/27/23 Ordering Physician: DAPHNIE HERNANDEZ Family Physician: ANDREIA Perla Physician: X-Ray Number : [id number] DIG PREETI SCREENING BILATERAL [id number] COMPLETE:08/27/23 10:03 22009 (REASON-PREETI DIAGNOS: SCREENING MAMMOGRAM See Scanned Image Attachment for Report Dictated By: Trans Initials: Trans Date: 08/28/23 09:00 <<REPDIST>>
--- OUTSIDE RECORDS SUMMARY | 2024-08-04 07:57 | XMS_ITS ---
Author Organization Unknown Address [address] [place] [phone] Phone Care Team Providers Care Radio Installer Name Role Phone VERONICA FELTON PMHNP Attending Unavailable ANDREIA Curry Primary Unavailable Immunization [...] mL dose 05/21/2022 Completed 300 CVX Results LIPID PANEL - Collect Date/T j luis: 04/01/2023 07:30 [facility] ID: [id number] [place], [place], [phone] LOINC: 78508-2 Test Value Unit Reference Range Code Code System Flag FASTING NO CHOLESTEROL 192 mg/dL L=0 H=200 3-3 LOINC TRIGLYCERIDE 70 mg/dL L=0 H=150 2571-8 LOINC HDL 74 mg/dL L=40 H=60 2084-9 LOINC H LDL 93 mg/dL 2088- LOINC BASIC METABOLIC PANEL - Varinder ect Date/Time: 04/01/2023 07:30 [facility] ID: [id number] [place], [place], [id number] LOINC: 72930-1 Test Value Unit Reference Range Code Code System Flag FASTING NO BUN 11 mg/dL L=7 H=20 3094-0 LOINC CREATININE 0.50 mg/dL L=0.52 H=1.04 2160-0 LOINC L GLUCOSE 79 mg/dL L=74 H=106 2345-7 LOINC CALCIUM 9.7 mg/dL L=8.3 H=10.5 51134-6 LOINC SODIUM 136 mmol/L L=132 H=144 2951-2 LOINC POTASSIUM 3.6 mmol/L L=3.5 H=5.1 2823-3 LOINC CHLORIDE 98 mmol/L L=98 H=107 2075-0 LOINC CO2 26.0 mmol/L L=22.0 H=30.0 8-9 LOINC ANION GAP 16 L=10 H=20 57433-5 LOINC BUN/CREAT 22.0 3097-3 LOINC AGE 52 11256-4 LOINC eGFR NON-AFR 137 ml/min eGFR AFR AMER 166 ml/min VITAMIN B-12 - Collect Date/ Time: 04/01/2023 07:30 [facility] ID: [id number] [address] [place] [address], [phone] LOINC: 2132-9 Test Value Unit Reference Range Code Code System Flag VITAMIN B12 > 942.99 pq/mL L=239 H=931 H 25 HYDROXY VITAMIN D - Colle ct Date/Time: 04/01/2023 07:30 [facility] ID: [id number] [address] [place] [address], [phone] LOINC: Test Value Unit Reference Range Code Code System Flag VITAMIN D 51.4 ng/ml L=30.0 H=100 57462-0 LOINC LIVER PROFILE - Collect Date /Time: 04/01/2023 07:30 [facility] ID: [id number] [address] [place] [address], [phone] LOINC: 41351-9 Test Value Unit Reference Range Code Code System Flag ALT 27 U/L L=9 H=72 1742-6 LOINC AST 16 U/L L=15 H=46 1920-8 LOINC ALKALINE PHOS 182 U/L L=38 H=126 6768-6 LOINC H TOTAL PROTEIN 7.1 g/L L=6.3 H=8.2 2885-2 LOINC TOTAL BILI 0.3 mg/dL L=0.2 H=1.3 1974-2 LOINC DIRECT BILI 0.0 mg/dL L=0.0 H=0.3 1967-7 LOINC INDIRECT BILI 0.20 mg/dL L=0.00 H=1.10 1971-1 LOINC ALBUMIN 4.4 G/dL L=3.5 H=5.0 1751-7 LOINC OXCARBAZEPINE - Collect Date /Time: 04/01/2023 07:30 [facility] ID: [id number] [place] [address], [phone] LOINC: 49602-0 Test Value Unit Reference Range Code Code System Flag Oxcarbazepine 29 10-35 78316-5 LOINC LAMICTAL LEVEL - Collect Inderjit e/Time: 04/01/2023 07:30 [facility] ID: [id number] [address] [place] [address], [phone] LOINC: 6948-4 Test Value Unit Reference Range Code Code System Flag Lamotrigine, Serum 8.7 2.0-20.0 6948-4 LOINC HGB A1C -GLYCOHEMOGLOBIN - C ollect Date/Time: 04/01/2023 07:30 [facility] ID: [id number] [id number] [place] [address], [phone] LOINC: 4548-4 Test Value Unit Reference Range Code Code System Flag HGBA1C 5.0 % 4548-4 LOINC CBC W/ DIFF - Collect Date/T j luis: 04/01/2023 07:30 [facility] ID: [id number] [address] [place] [address], [phone] LOINC: 86429-8 Test Value Unit Reference Range Code Code System Flag WBC 6.4 10^3uL L=4.8 H=10.8 RBC 4.41 10^6uL L=4.20 H=5.40 HEMOGLOBIN 13.7 g/dL L=12.0 H=16.0 718-7 LOINC HEMATOCRIT 41.4 VOL% L=37.0 H=47.0 4544-3 LOINC MCV 93.9 fL L=81.0 H=99.0 MCH 31.1 pg L=27.0 H=32.0 MCHC 33.1 g/dL L=32.0 H=36.0 PLATELETS 180 10^3uL L=100 H=400 02423-2 LOINC RDW 13.0 % L=11.7 H=15.5 %GRAN 76.2 % L=40.0 H=70.0 38445-5 LOINC H %LYMPH 13.6 % L=20.0 H=45.0 736-9 LOINC L %MONO 7.5 % L=2.0 H=10.0 86621-0 LOINC %EOS 2.2 % L=0.0 H=6.0 713-8 LOINC %BASO 0.3 % L=0.0 H=3.0 706-2 LOINC #NEUT 4.9 10^3uL L=1.9 H=7.6 64258-8 LOINC #LYMPH 0.9 10^3uL L=0.9 H=4.9 61644-2 LOINC #MONO 0.5 10^3uL L=0.1 H=0.9 39633-8 LOINC #EOS 0.1 10^3uL L=0.0 H=0.6 712-0 LOINC #BASO 0.02 10^3uL L=0.00 H=0.10 43958-2 LOINC #IM GRANS 0.0 10^3uL L=0.0 H=7.0 21631-1 LOINC %IM GRANS 0.2 % L=0.0 H=5.0 45966-3 LOINC %NRB 0.0 L=0.0 H=0.2 66982-3 LOINC #NRB 0.000 L=0.000 H=0.012 80068-3 LOINC MANUAL DIFF NOT INDICATED RBC MORPH NOT INDICATED Social History Type Status Start Date End Date Code Code Syst em Smoking History Never smoker (Never Smoked) 254567530 SNOMED CT Smoking History Unknown if ever smoked [address] Sex Female Medications Medication Start Date End Date Route Frequency Dose Code Code System Medication Instructions Home Meds Acetaminophen 325MG Oral Tablet 11/06/2017 Unknown ORAL NEEDED 325 MILLIGRAMS 501538 RxNorm TAKE 325 MILLIGRAMS ORAL NEEDED Benztropine Mesylate 0.5MG Oral Tablet 11/06/2017 Unknown ORAL TWICE A DAY 0.5 MILLIGRAMS 805184 RxNorm TAKE 0.5 MILLIGRAMS ORAL TWICE A DAY Betamethasone Valerate 0.1% Topical application Cream 11/06/2017 Unknown TOPICA L APPLIC ATION ONCE A DAY 1 unit(s) 246102 RxNorm 1 EACH TOPICAL APPLICATION ONCE A DAY Caltrate 600 + D 600MG-200IU Oral Tablet 11/06/2017 Unknown ORAL ONCE A DAY 1 unit(s) 6230320 RxNorm TAKE 1 EACH ORAL ONCE A DAY Clotrimazole 1% Topical application Cream 11/06/2017 Unknown TOPICA L APPLIC ATION TWICE A DAY 1 unit(s) 465238 RxNorm 1 EACH TOPICAL APPLICATION TWICE A DAY Colace 100MG Oral Capsule, Liquid Filled 11/06/2017 Unknown ORAL TWICE A DAY 100 MILLIGRAMS 9585795 RxNorm TAKE 100 MILLIGRAMS ORAL TWICE A DAY OXcarbazepine 150MG Oral Tablet 11/06/2017 Unknown ORAL ONCE A DAY 150 MILLIGRAMS 924475 RxNorm TAKE 150 MILLIGRAMS ORAL ONCE A DAY OXcarbazepine 300MG Oral Tablet 11/06/2017 Unknown ORAL ONCE A DAY 300 MILLIGRAMS 356374 RxNorm TAKE 300 MILLIGRAMS ORAL ONCE A DAY OXcarbazepine 600MG Oral Tablet 11/06/2017 Unknown ORAL EVERY 12 HOURS 600 MILLIGRAMS 069735 RxNorm TAKE 600 MILLIGRAMS ORAL EVERY 12 HOURS Potassium Chloride 10MEQ Oral Tablet, Extended Release 11/06/2017 Unknown ORAL ONCE A DAY 10 MEQ 695588 RxNorm TAKE 10 MEQ ORAL ONCE A DAY Prempro 0.45MG-1.5MG Oral Tablet 11/06/2017 Unknown ORAL ONCE A DAY 1 unit(s) 6746991 RxNorm TAKE 1 EACH ORAL ONCE A DAY Sertraline 100MG Oral Tablet 11/06/2017 Unknown ORAL EVERY 24 HOURS 100 MILLIGRAMS 792571 RxNorm TAKE 100 MILLIGRAMS ORAL EVERY 24 HOURS Terazosin HCl 2MG Oral Capsule 11/06/2017 Unknown ORAL AT BEDTIME 2 MILLIGRAMS 756891 RxNorm TAKE 2 MILLIGRAMS ORAL AT BEDTIME Topiramate 25MG Oral Tablet 11/06/2017 Unknown ORAL EVERY 24 HOURS 25 MILLIGRAMS 163543 RxNorm TAKE 25 MILLIGRAMS ORAL EVERY 24 HOURS clonazePAM 0.5MG Oral Tablet 11/06/2017 Unknown ORAL TWICE A DAY 0.5 MILLIGRAMS 648023 RxNorm TAKE 0.5 MILLIGRAMS ORAL TWICE A DAY lamoTRIgine 200MG Oral Tablet 11/06/2017 Unknown ORAL EVERY 24 HOURS 200 MILLIGRAMS 698576 RxNorm TAKE 200 MILLIGRAMS ORAL EVERY 24 HOURS risperiDONE 1MG Oral Tablet 11/06/2017 Unknown ORAL TWICE A DAY 1 MILLIGRAMS 866838 RxNorm TAKE 1 MILLIGRAMS ORAL TWICE A [...] Code System No Known Drug Allergies Active 163066110 SNOMED-CT Plan of Treatment Bone Density Dexa 11/10/2019 Digital Preeti Screen Bilateral (98916) Bone Density Dexa 11/10/2019 Digital Preeti Screen Bilateral (72935) Bone Density Dexa 06/13/2022 Esophagus 02/26/2023 Digital Preeti Screen Bilateral (70528) Digital Preeti Screen Bilateral (12013) Bone Density Dexa 07/22/2024 Digital Preeti Screen Bilateral (55952) Encounters Encounter Diagnosis Start Date Code Code Sys tem Other oysterman (current) drug therapy 04/01/2023 SNOMED-CT Personal Care Team Section Performer Name Performer Role Active Date Inactive YESSICA Lipscomb
== END 2024-08-04 07:52 | disposition home or self-care (01) ==
PROVIDERS: PCP Family Medicine; Visit Provider Family Medicine
DX: Z01.10 Encounter for examination of ears and hearing without abnormal findings (principal); H93.8X3 Other specified disorders of ear, bilateral; H61.23 Impacted cerumen, bilateral
CPT/HCPCS: 92555; 92567; 92587